=== PATIENT | female | born 1995 | race Caucasian/White ===

== ENCOUNTER 2016-09-21 19:11 | Inpatient (IN) | payer OTHER ==
[~2016-09-21] VITALS: Ht 167.6 cm; Wt 57.5 kg
[~2016-09-21 19:11] MED LIST: IBUP800T25 PO; NITR-58 PO
[2016-09-21] MEDS ORDERED: ONDANSETRON 4 MG INJ IV PRN (20:00)
[2016-09-21] MEDS ORDERED: DOCUSATE SODIUM 100 MG CAP PO PRN (20:00)
[2016-09-21] MEDS ORDERED: NACL 0.9% 3 ML SYG IV SCH (20:00)
[2016-09-21] MEDS ORDERED: BISACODYL (EC) 5 MG TAB PO PRN (20:00)
[2016-09-21] MEDS ORDERED: ACETAMINOPHEN 325 MG TAB PO PRN (20:00)
--- NOTE | 2016-09-21 20:19 | EN ---
Date/Time of Note Date/Time of Note DATE: 09/21/16 TIME: 20:16 ER Progress Note HPI: 20-year-old young woman transferred by [facility] for admission to [facility] for new diagnosis of pneumonia. Patient had cough and shortness of breath, and x-ray revealed left-sided pneumonia. Patient was treated with levofloxacin 750 mg IV Past medical history: None Physical exam: GENERAL: Well-developed, well-nourished, well-hydrated, in no apparent distress , looks nontoxic in appearance HEENT: Moist mucous membranes, pink conjunctiva, no cervical spine tenderness or step-off deformities, no goiter, no jaundice or icterus, extraocular movements intact without pain. No submandibular induration, and no pharyngeal erythema NEURO: Alert and oriented 3, cranial nerves II through XII intact bilaterally, pupils equal round reactive to light, no focal deficits or facial asymmetry, sensation intact distally Strength 5/5 in upper and lower extremities bilaterally CARDIAC: Regular rate and rhythm, no murmurs rubs or gallops LUNGS: Diminished breath sounds on the left, clear lung sounds on the right, no wheezing crackles or stridor ABDOMEN: Soft nontender, no guarding, no rigidity, no rebound, no psoas sign no obturator sign. Normoactive bowel sounds SKIN: Warm and dry to touch, no abrasions, contusions, or hematomas, no lacerations, no ecchymosis, no target lesions, and without ulcers EXTREMITIES: No clubbing cyanosis or edema, calves are bilaterally symmetrical, no Homans sign, no popliteal cord sign. Distal pulses equal and bilateral PSYCH: Normal affect without agitation or irritability Medical decision making: I ordered normal saline 250 cc/h IV drip, I reviewed patient's medical records, recent labs, and x-ray results. Patient's most recent labs were unremarkable, and she is asymptomatic at this time. Patient is boarded in the Emergency Department pending placement to a [facility] floor bed Diagnostic impression: Acute left-sided pneumonia PEDRO CALDERÓN MD Sep 21, 2016 20:19
[2016-09-21 20:25] LABS: ADD SCAN DIFF NO
[2016-09-21 20:30] LABS: HEMATOCRIT 35.7 % (37.0-47.0); HEMOGLOBIN 11.7 g/dl (12.0-16.0); MEAN CORPUSCULAR HGB CONC 32.8 g/dl (32.0-37.0); MEAN CORPUSCULAR VOLUME 88.4 fl (72.0-104.0); MEAN PLATELET VOLUME 10.9 fl (7.4-10.4); PLATELET COUNT 325 10^3/UL (140-415); RED BLOOD COUNT 4.04 10^6/ul (4.20-5.40); RED CELL DISTRIBUTION WIDTH 12.3 % (11.5-14.5); WHITE BLOOD COUNT 7.1 10^3/ul (4.8-10.8)
[2016-09-21 20:45] LABS: ALBUMIN/GLOBULIN RATIO 1.33; CALCIUM 8.6 mg/dl (8.4-10.2); CREATININE 0.62 mg/dl (0.44-1.00)
[2016-09-21 20:47] LABS: EOSINOPHILS # 0.1 10^3/ul (0.0-0.5); LYMPHOCYTES # 1.1 10^3/ul (0.8-2.9); MONOCYTE # 0.1 10^3/ul (0.3-0.9); NEUTROPHIL # 5.8 10^3/ul (1.6-7.5)
[2016-09-21] MEDS: SOD CHLORIDE 0.9% 1,000 ML IV SCH (20:49)
[2016-09-21] MEDS: FAMOTIDINE 20 MG TAB PO SCH (22:42)
[2016-09-21 22:58] LABS: ADD UMIC YES; UR ASCORBIC ACID NEGATIVE (NEGATIVE); UR BILIRUBIN (Dip) NEGATIVE (NEGATIVE); UR BLOOD (Dip) NEGATIVE (NEGATIVE); UR CLARITY CLOUDY (CLEAR); UR COLOR AMBER (YELLOW); UR GLUCOSE (Dip) NEGATIVE (NEGATIVE); UR KETONES (Dip) 2+ mg/dL (NEGATIVE); UR LEUKOCYTE ESTERASE (Dip) TRACE Leu/ul (NEGATIVE); UR MUCUS MANY /HPF (NONE SEEN); UR NITRITE (Dip) NEGATIVE (NEGATIVE); UR RBC 3 /HPF (0-5); UR SPECIFIC GRAVITY (Dip) 1.021 (1.003-1.030); UR SQUAMOUS EPITHELIAL CELL MANY /HPF (FEW); UR TOTAL PROTEIN (Dip) 2+ mg/dl (NEGATIVE); UR UROBILINOGEN (Dip) 1+ mg/dL (NEGATIVE)
[2016-09-21 23:17] VITALS: Ht 167.6 cm; Wt 57.5 kg
--- NOTE | 2016-09-21 23:23 | HP ---
Date/Time of Note Date/Time of Note DATE: 09/21/16 TIME: 23:23 Assessment/Plan VTE Prophylaxis VTE Prophylaxis Intervention: SCD's Assessment/Plan Chief Complaint/Hosp Course This is a 20-year-old female being admitted to the Medr floor for: #1 community-acquired pneumonia: Patient recently received amoxicillin as an outpatient but was not specifically for pneumonia. At the current time will treat with Levaquin IV. Tylenol for fevers. Oxygen supplementation as needed. Chest x-ray in the a.m. blood work at [facility]. Within normal values. #2 DVT and GI prophylaxis: SCDs, Protonix Further treatment strategy will be implemented as per the clinical course Problems: HPI/ROS Admit Date/Time Admit Date/Time Sep 21, 2016 at 19:41 Hx of Present Illness Chief complaint: Shortness of breath chief complaint: Cough 4 days This is a 20-year-old young woman transferred by [facility] for admission to [facility] for new diagnosis of pneumonia. Patient had cough and shortness of breath 4 days. Fever also 101 and x-ray revealed left-sided pneumonia. Patient was treated with levofloxacin 750 mg IV. She previously was treated with amoxicillin for a few days but she was not feeling any better. She reports phlegm which is whitish. Denies any chest pain. Allergies: NKDA Medications: No home medication ROS Const: As per HPI Eyes : No pain discharge or redness or change in visual acuity ENT: No pain, sore throat, congestion, congestion, dysphagia or discharge Respiratory: As per HPI Cardiovascular: No chest pain, palpitation, PND, or edema GI : no change in appetite, abdominal pain, nausea, vomiting, diarrhea, constipation, or change in the color his stool Genitourinary: No dysuria, hematuria, flank pain , discharge or CVA tenderness Musculoskeletal: No joint pain, back pain, neck pain, restricted range of motion in neck or joints Skin: No rash, bruising or hives Neuro: No headache, dizziness, syncope, seizure, focal weakness Endocrine: No polyuria, polydipsia, temperature intolerance Psych: No hallucination, depression, anxiety or suicidal ideation PMH/Family/Social Past Medical History Medical History: no pertinent history Past Surgical History Past Surgical Hx: no surgical history Family History Significant Family History: no pertinent family hx Social History Alcohol Use: none Smoking Status: Never smoker Drug Use: none Exam/Review of Systems Vital Signs Vitals Vital Signs Date Time Temp Pulse Resp B/P Pulse Ox O2 Delivery O2 Flow Rate FiO2 09/21/16 21:37 77 18 128/68 98 Room Air 09/21/16 19:15 98.2 Exam Exam General: This is a well-developed 20-year-old female laying in bed in no acute distress. HEENT: Atraumatic, normocephalic. The pupils are equal, round and reactive. Extraocular motor are intact Neck: Supple with full range of motion. No rigidity or meningismus Chest: Nontender Lungs: Coarse breath sounds on the left side of the lung Heart: Normal S1-S2, Regular rhythm and rate. No murmur, S3, or S4 Abdomen: Soft , nontender, nondistended , bowel sounds are present. No guarding no rebound tenderness , No masses or organomegaly. No costovertebral temporal angle mass Extremities: Normal to inspection, no edema no cyanosis Neurologic: Normal mental status, speech normal, cranial nerves II through XII are intact, motor and sensory are intact, no focal weakness Additional Comments Please review transfer documentation for imaging and blood work information. Labs Result Diagram: 09/21/16201909/21/162019 Medications Medications Current Medications Sodium Chloride (NS) 1,000 ml @ 250 mls/hr Q4H IV Last administered on 20:49; Admin Dose 250 MLS/HR; Start 09/21/16 at 20:00 Ondansetron HCl (Zofran Inj) 4 mg Q6H PRN IV NAUSEA AND/OR VOMITING; Start 12/29 at 20:00 Acetaminophen (Tylenol Tab) 650 mg Q6H PRN PO PAIN LEVEL 1-3 OR FEVER; Start at 20:00 Docusate Sodium (Colace) 100 mg Q12H PRN PO CONSTIPATION; Start 09/21/16 at 20: 00 Bisacodyl (Dulcolax) 5 mg DAILY PRN PO CONSTIPATION; Start 09/21/16 at 20:00 Famotidine (Pepcid) 20 mg Q12 PO Last administered on 09/21/16 22:42; Admin Dose 20 MG; Start 09/21/16 at 21:00 DANIA VELAZQUEZ Sep 21, 2016 23:23
[2016-09-21] MEDS ORDERED: ASCO500S2 PO (23:26)
[2016-09-21] MEDS ORDERED: AMOX500T PO (23:28)
[2016-09-21 23:30] VITALS: BP 138/83; PULSE 73; RESP 20
[2016-09-22] MEDS: LEVOFLOXACIN 750MG/D5W (PMX) 150 ML IVPB SCH (02:17)
[2016-09-22 07:29] VITALS: BP 120/83; RESP 18
[2016-09-22] MEDS: FAMOTIDINE 20 MG TAB PO SCH ×2 (08:34→20:24)
--- NOTE | 2016-09-22 10:27 | RADRPT ---
PROCEDURE: Chest radiograph series. CLINICAL INDICATION: Pneumonia TECHNIQUE: PA and lateral chest x-ray. COMPARISON: None. FINDINGS: The cardiomediastinal silhouette is unremarkable. There is extensive infiltrates in the left upper l obe and lingula. No pleural effusions are seen. The osseous structures are unremarkable. IMPRESSION: 1. Left upper lobe and lingular infiltrates. Recommend correlation with pneumonia and follow up to resolution. RPTAT: KK .Michael Cole MD, MD Date Time Electronically viewed and signed by .Michael Cole MD, on 09/22/2016 10:27 .B/
[2016-09-22] MEDS: SOD CHLORIDE 0.9% 1,000 ML IV SCH ×3 (11:04→16:56)
[2016-09-22 19:49] VITALS: BP 119/78; RESP 18
--- NOTE | 2016-09-22 20:06 | PN ---
Date/Time of Note Date/Time of Note DATE: 09/22/16 TIME: 20:04 Assessment/Plan VTE Prophylaxis VTE Prophylaxis Intervention: SCD's Lines/Catheters IV Catheter Type (from Nrs): Peripheral IV Urinary Cath still in place: No Assessment/Plan Assessment/Plan #1 community-acquired pneumonia: improving. Patient failed outpt therapy with amoxicillin, still significantly symptomatic, continue IV abx, review in am. Subjective 24 Hr Interval Summary Free Text/Dictation still coughing ++, and gets winded easily Exam/Review of Systems Vital Signs Vitals Vital Signs Date Time Temp Pulse Resp B/P Pulse Ox O2 Delivery O2 Flow Rate FiO2 09/22/16 19:49 98.1 93 18 119/78 97 09/21/16 23:30 Room Air Intake and Output 09/21/16 09/21/16 09/22/16 15:00 23:00 07:00 Intake Total 1180 ml Balance 1180 ml Exam Constitutional: alert, oriented Psych: nl mood/affect Head: normocephalic Eyes: PERRL ENMT: mucosa pink and moist Respiratory: crackles/rales (bibasal), diminished breath sounds Cardiovascular: regular rate and rhythm Gastrointestinal: non-tender, soft Extremities: No edema Neurological: nl mental status Results Result Diagram: 09/21/16201909/21/162019 Results 24 hrs Laboratory Tests Test 09/21/16 20:20 09/21/16 22:37 White Blood Count 7.1 # Red Blood Count 4.04 L Hemoglobin 11.7 L Hematocrit 35.7 L Mean Corpuscular Volume 88.4 Mean Corpuscular Hemoglobin 29.0 Mean Corpuscular Hemoglobin Concent 32.8 Red Cell Distribution Width 12.3 Platelet Count 325 Mean Platelet Volume 10.9 H Neutrophils % 81.0 H Lymphocytes % 16.0 L Monocytes % 2.0 Eosinophils % 1.0 Neutrophils # 5.8 Lymphocytes # 1.1 Monocytes # 0.1 L Eosinophils # 0.1 Sodium Level 137 Potassium Level 4.0 Chloride Level 103 Carbon Dioxide Level 26 Anion Gap 12 Blood Urea Nitrogen 6 L Creatinine 0.62 Glucose Level 95 Calcium Level 8.6 Total Bilirubin 0.0 L Direct Bilirubin 0.00 Indirect Bilirubin 0.0 Aspartate Amino Transf (AST/SGOT) 21 Alanine Aminotransferase (ALT/SGPT) 28 Alkaline Phosphatase 66 Total Protein 7.0 Albumin 4.0 Globulin 3.00 Albumin/Globulin Ratio 1.33 Urine Color KAE Urine Clarity CLOUDY A Urine pH 6.0 Urine Specific Spring 1.021 Urine Ketones 2+ H Urine Nitrite NEGATIVE Urine Bilirubin NEGATIVE Urine Urobilinogen 1+ H Urine Leukocyte Esterase TRACE A Urine Microscopic RBC 3 Urine Microscopic WBC 4 Urine Squamous Epithelial Cells MANY A Urine Mucus MANY A Urine Hemoglobin NEGATIVE Urine Glucose NEGATIVE Urine Total Protein 2+ H Medications Medications Current Medications Sodium Chloride (NS) 1,000 ml @ 75 mls/hr [id number] IV Last administered on 09/22 16:56; Admin Dose 75 MLS/HR; Start 09/21/16 at 20:00 Ondansetron HCl (Zofran Inj) 4 mg Q6H PRN IV NAUSEA AND/OR VOMITING; Start 12/29 at 20:00 Acetaminophen (Tylenol Tab) 650 mg Q6H PRN PO PAIN LEVEL 1-3 OR FEVER Last administered on 09/22/16 02:22; Admin Dose 650 MG; Start 09/21/16 at 20:00 Docusate Sodium (Colace) 100 mg Q12H PRN PO CONSTIPATION; Start 09/21/16 at 20: 00 Bisacodyl (Dulcolax) 5 mg DAILY PRN PO CONSTIPATION; Start 09/21/16 at 20:00 Famotidine 20 mg 20 mg Q12 PO Last administered on 09/22/16 08:34; Admin Dose 20 MG; Start 09/21/16 at 21:00 Levofloxacin/ Dextrose (Levaquin 750 Mg/ D5W 150 ml (Pmx)) 150 ml @ 100 mls/hr Q24H IVPB Last administered on 09/22/16 02:17; Admin Dose 100 MLS/HR; Start at 01:00 SHANNAN CULLEN Sep 22, 2016 20:06
[2016-09-22] MEDS: ALBUTEROL 18 GM INHALER INH SCH (23:09)
[2016-09-23] MEDS: LEVOFLOXACIN 750MG/D5W (PMX) 150 ML IVPB SCH (01:03)
[2016-09-23] MEDS: ALBUTEROL 18 GM INHALER INH SCH ×5 (01:03→18:04)
[2016-09-23] MEDS: SOD CHLORIDE 0.9% 1,000 ML IV SCH ×3 (05:14→18:03)
[2016-09-23 07:43] VITALS: BP 118/70; RESP 18
[2016-09-23] MEDS: FAMOTIDINE 20 MG TAB PO SCH ×2 (08:49→20:23)
[2016-09-23 20:34] VITALS: BP 128/73; RESP 18
[2016-09-24] MEDS: LEVOFLOXACIN 750MG/D5W (PMX) 150 ML IVPB SCH (00:35)
[2016-09-24 02:08] VITALS: BP 121/66; RESP 18
[2016-09-24 07:55] VITALS: BP 133/66; RESP 20
[2016-09-24] MEDS: FAMOTIDINE 20 MG TAB PO SCH (08:20)
[2016-09-24] MEDS: SOD CHLORIDE 0.9% 1,000 ML IV SCH (10:56)
[2016-09-24] MEDS ORDERED: LEVO750T8 PO (11:13)
[2016-09-24] MEDS ORDERED: LACT1CAP57 PO (11:13)
--- NOTE | 2016-09-24 11:13 | DS ---
Date/Time of Note Date/Time of Note DATE: 09/24/16 TIME: 11:13 Discharge Summary Admission/Discharge Info Admit Date/Time Sep 21, 2016 at 19:41 Discharge Date/Time 09/24/16 . Discharge Diagnosis L sided Pneumonia . Patient Condition: Stable Procedures PROCEDURE: Chest radiograph series. CLINICAL INDICATION: Pneumonia TECHNIQUE: PA and lateral chest x-ray. COMPARISON: None. FINDINGS: The cardiomediastinal silhouette is unremarkable. There is extensive infiltrates in the left upper lobe and lingula. No pleural effusions are seen. The osseous structures are unremarkable. IMPRESSION: 1. Left upper lobe and lingular infiltrates. Recommend correlation with pneumonia and follow up to resolution. RPTAT: KK .Michael Cole MD, Date Time Electronically viewed and signed by .Mihcael Cole MD, on 2016 10:27 . Hx of Present Illness Chief complaint: Shortness of breath chief complaint: Cough 4 days This is a 20-year-old young woman transferred by [facility] for admission to [facility] for new diagnosis of pneumonia. Patient had cough and shortness of breath 4 days. Fever also 101 and x-ray revealed left-sided pneumonia. Patient was treated with levofloxacin 750 mg IV. She previously was treated with amoxicillin for a few days but she was not feeling any better. She reports phlegm which is whitish. Denies any chest pain. Allergies: NKDA Medications: No home medication Hospital Course This is a 20-year-old female admitted for pneumonia that failed outpatient therapy. She was treated with IV antibiotics for 2 day and is now sufficiently improved to complete her therapy as outpt. She is being discharged in stable condition. . Home Meds Active Scripts Lactobacillus Rhamnosus* (Culturelle*) 1 Each Cap.sprink, 1 CAP PO BID for 5 Days, CAP Prov:ALYSE,ZACKATITO M. 09/24/16 Levofloxacin* (Levofloxacin*) 750 Mg Tablet, 750 MG PO DAILY for 5 Days, TAB Prov:ALYSESHANNAN M. 09/24/16 Ibuprofen* (Motrin*) 800 Mg Tab, 800 MG PO Q6, #30 TAB Prov:BOUCHRA DUMONT NP 04/14/15 Reported Medications Ascorbic Acid* (Ascorbic Acid*) 500 Mg/5 Ml Syrup, 500 MG PO DAILY, #150 ML 09/21/16 Discontinued Reported Medications Amoxicillin Trihydrate (Amoxicillin) Unknown Strength Tablet, 875 MG PO Q12, # 20 TAB 09/21/16 Discontinued Scripts Nitrofurantoin Monohyd Macrocr* (Macrobid*) 100 Mg Capsr, 100 MG PO BID for 5 Days, CAP Prov:BOUCHRA DUMONT NP 04/14/15 Follow-up Plan Followup with your primary doctor within the next 1-2 weeks to ensure resolution of symptoms. . Primary Care Provider Not On Staff Doctor Time spent on discharge: < 30 minutes SHANNAN CULLEN Sep 24, 2016 11:13
--- NOTE | 2016-09-24 12:52 | PDOCDIS ---
Discharge Instructions DIAGNOSIS Discharge Diagnosis Pneumonia CONDITION Patient Condition: Stable HOME CARE INSTRUCTIONS: Special Diet: REGULAR ACTIVITY: Activity Restrictions: Slowly Increase Activity Rest between Activity FOLLOW UP/APPOINTMENTS Follow-up Plan Followup with your primary doctor within the next 1-2 weeks. If you don't have one please let someone know, we can give you resources that may help you pick one. You may call Dr Kodak Dye's office. he's accepting new patients Name, Degree: Kodak Dye MD Specialty: Internal Medicine Comments: Office Address: [address] [place] [address] [place], [place] [id number] Office Office You may also call your insurance company to assign one to you. Review your medication list with your nurse before leaving and if you need new prescriptions please let your nurse know. I may have made changes to your home medications or given you new prescriptions, please let your primary doctor know as well. Stay compliant with your medications and report any side effects to your PCP or pharmacist. Return to the ER if you have any concerns and cannot reach your doctors or call your insurance company, they usually have a nurse that can help you. SHANNAN CULLEN Sep 24, 2016 12:52
--- NOTE | 2016-09-24 19:46 | EN ---
Date/Time of Note Date/Time of Note DATE: 09/24/16 TIME: 19:43 Event Note Medicine Medicine Event Note Progress note 09/23/16 Subjective: Patient seen and evaluated, still with significant coughing, also with shortness of breath and wheezing. Patient now comfortable with the start of discharge today. Objective: Vital signs: Temperature 93, pulse 65, respirations 18, blood pressure 118/70, saturations 96 % Constitutional: alert, oriented Psych: nl mood/affect Head: normocephalic Eyes: PERRL ENMT: mucosa pink and moist Respiratory: crackles/rales (bibasal), diminished breath sounds Cardiovascular: regular rate and rhythm Gastrointestinal: non-tender, soft Extremities: No edema Neurological: nl mental status Assessment and plan: Left-sided community-acquired pneumonia,severe: Continue IV antibiotics,review again for discharge tomorrow. SHANNAN CULLEN Sep 24, 2016 19:46
== END 2016-09-24 13:40 | disposition home or self-care (01) | DRG 195 ==
LOC: E/R 19:11 → MS2 19:41
PROVIDERS: ADMIT Family Medicine; ATTEND Family Medicine
DX: J18.9 Pneumonia, unspecified organism (principal)
CPT/HCPCS: 71020; 80053; 81001; 85025; 87081; J1956; J7030

== ENCOUNTER 2016-12-06 23:36 | Emergency (ER) | payer OTHER ==
[~2016-12-06] VITALS: Ht 167.6 cm; Wt 59.5 kg
[~2016-12-06 23:36] MED LIST changes: +ASCO500S2 PO; +LACT1CAP57 PO; +LEVO750T8 PO; -NITR-58 PO
[2016-12-06 23:52] VITALS: Ht 167.6 cm; Wt 59.5 kg
--- NOTE | 2016-12-07 03:21 | ERD ---
ER Documentation Chief Complaint Date/Time DATE: 12/07/16 TIME: 03:17 Chief Complaint shortness of breath x 1 day, lungs clear. hx of pneumonia HPI 21-year-old female presents here in emergency department for complaints of mid chest pain and shortness of breath that started today. Patient described the pain is sharp pain, 6/10 scale, not better or worse with anything. Patient had history of pneumonia before. Was admitted to the hospital for the pneumonia. Patient is currently seeing a endocrinology specialist. ROS All systems reviewed and are negative except as per history of present illness. Medications Home Meds Active Scripts Lactobacillus Rhamnosus* (Culturelle*) 1 Each Cap.sprink, 1 CAP PO BID for 5 Days, CAP Prov:PRINCESS CULLENGurinder M. 09/24/16 Levofloxacin* (Levofloxacin*) 750 Mg Tablet, 750 MG PO DAILY for 5 Days, TAB Prov:PRINCESS CULLENGurinder M. 09/24/16 Ibuprofen* (Motrin*) 800 Mg Tab, 800 MG PO Q6, #30 TAB Prov:BOUCHRA DUMONT NP 04/14/15 Reported Medications Ascorbic Acid* (Ascorbic Acid*) 500 Mg/5 Ml Syrup, 500 MG PO DAILY, #150 ML 09/21/16 Allergies Allergies: Coded Allergies: No Known Allergy (Unverified , 12/06/16) PMhx/Soc Medical and Surgical Hx: pt denies Medical Hx, pt denies Surgical Hx History of Surgery: No Anesthesia Reaction: No Hx Neurological Disorder: No Hx Respiratory Disorders: No Hx Cardiac Disorders: No Hx Psychiatric Problems: No Hx Miscellaneous Medical Probl: No Hx Alcohol Use: No Hx Substance Use: No Hx Tobacco Use: No Physical Exam Vitals Vital Signs Date Time Temp Pulse Resp B/P Pulse Ox O2 Delivery O2 Flow Rate FiO2 12/06/16 23:52 99.2 90 20 129/80 99 Physical Exam GENERAL: The patient is well developed and appropriate for usual state of health, in no apparent distress. CHEST: Clear to auscultation bilaterally. There are no rales, wheezes or rhonchi. HEART: Regular rate and rhythm. No murmurs, clicks, rubs or gallops. No S3 or S4. ABDOMEN: Soft, nontender and nondistended. Good bowel sounds. No rebound or guarding. No gross peritonitis. No gross organomegaly or masses. No Hernandez sign or McBurney point tenderness. BACK: No midline or flank tenderness. EXTREMITIES: Equal pulses bilaterally. There is no peripheral clubbing, cyanosis or edema. No focal swelling or erythema. Full range of motion. Grossly neurovascularly intact. NEURO: Alert and oriented. Cranial nerves 2-12 intact. Motor strength in all 4 extremities with 5/5 strength. Sensation grossly intact. Normal speech and gait. SKIN: There is no apparent rash or petechia. The skin is warm and dry. HEMATOLOGIC AND LYMPHATIC: There is no evidence of excessive bruising or lymphedema. No gross cervical, axillary, or inguinal lymphadenopathy. Results 24 hrs EKG was done, read by me and is normal sinus rhythm at a rate of 71, normal axis , there is no ST changes or changes in the EKG that indicates any cardiac emergencies at this time. Patient's EKG was also reviewed by Dr. Ayala. Impression: no acute findings on EKG PROCEDURE: XR Chest. CLINICAL INDICATION: Chest pain. TECHNIQUE: AP Portable chest. COMPARISON: 09/22/2016 FINDINGS: The cardiomediastinal silhouette is normal. The lungs are clear. The osseous structures are unremarkable. IMPRESSION: No acute findings. RPTAT: HIKT .Prem Medellin MD, MD Date Time Electronically viewed and signed by .Prem Medellin MD, MD on 12/07/2016 04:12 .T/ CC: TARYN CHO GROUTMAN Procedures/MDM Medical Decision Making: Symptoms of chest pain and shortness of breath nonspecific at this time, possible musculoskeletal pain, can be also anxiety related him a previously seen pneumonia not seen anymore. There is low suspicion for cardiopulmonary emergencies at this time. Patient has low risk factors. EKG is normal, there is no changes in the EKG that indicates cardiac emergencies. Chest X-ray does not show cardiopulmonary emergencies at this time. There is low suspicion for aortic aneurysm, myocardial infarction, pneumothorax, pleural effusion, pulmonary embolism, or any other cardiopulmonary emergencies at this time. Prescription was given for ibuprofen, Dispostion: Home. Stable Disclaimer: Inadvertent spelling and grammatical errors are likely due to EHR/ dictation software use and do not reflect on the overall quality of patient care. Also, please note that the electronic time recorded on this note does not necessarily reflect the actual time of the patient encounter. Departure Diagnosis: Primary Impression: Atypical chest pain Condition: Stable Patient Instructions: Chest Pain, Uncertain Cause TARYN CHO NP Dec 07, 2016 03:21
--- NOTE | 2016-12-07 04:13 | RADRPT ---
PROCEDURE: XR Chest. CLINICAL INDICATION: Chest pain. TECHNIQUE: AP Portable chest. COMPARISON: 09/22/2016 FINDINGS: The cardiomediastinal silhouette is normal. The lungs are clear. The osseous structures are unrema rkable. IMPRESSION: No acute findings. RPTAT: HIKT .Prem Medellin MD, MD Date Time Electronically viewed and signed by .Prem Medellin MD, on 12/07/2016 04:12 .T/
[2016-12-07] MEDS ORDERED: IBUP-1542 PO (04:29)
[2016-12-07 04:59] VITALS: BP 123/81; PULSE 79; RESP 18; TEMP 98.4
== END 2016-12-07 05:00 | disposition home or self-care (01) ==
LOC: FTE 23:36
DX: R07.89 Other chest pain (principal)
CPT/HCPCS: 71010; 93005; Z7502